=== PATIENT | female | born 1965 | race Caucasian/White ===

== ENCOUNTER 2016-04-22 07:11 | Outpatient (CLI) | payer BC | END 2016-04-22 07:12 | disposition home or self-care (01) | DX: D64.9 Anemia, unspecified (principal); R00.2 Palpitations; R74.8 Abnormal levels of other serum enzymes; E55.9 Vitamin D deficiency, unspecified ==

== ENCOUNTER 2017-12-10 07:52 | Outpatient (CLI) | payer BC ==
--- NOTE | 2017-12-11 12:25 | Mammography Report ---
Reason: SCREENING MAMMO Procedure Date: 12/10/2017 Accession Number: [id number] / [id number] Procedure: MARGARITA - Screening Mammo Dig Bilat CPT Code: FULL RESULT: EXAM: Screening Mammo Dig Bilat DATE: 12/10/2017 8:38 AM CLINICAL HISTORY: Routine screening TECHNIQUE: Bilateral CC and MLO views were obtained. COMPARISON: 11/23/2014, 11/24/2008, 05/11/2008 and 04/26/2008 FINDINGS: The breast tissue is heterogeneously dense. No significant interval change. No suspicious masses, clustered microcalcifications, or regions of architectural distortion are identified. IMPRESSION: Negative examination. RECOMMENDATION: Routine annual screening unless otherwise clinically indicated. BIRADS CATEGORY 1: Negative STANDARD QUALIFYING STATEMENTS: 1. This examination was reviewed with the aid of Computer-Aided Detection (CAD). 2. A negative or benign imaging report should not delay biopsy if clinically suspicious findings are present. Consider surgical consultation if warrented. More than 5% of cancers are not identified by imaging. 3. Dense breasts may obscure an underlying neoplasm.
== END 2017-12-10 07:53 | disposition home or self-care (01) ==
LOC: DI 07:52
PROVIDERS: ATTEND Nurse Practitioner Family
DX: Z12.31 Encounter for screening mammogram for malignant neoplasm of breast (principal)
CPT/HCPCS: 77067

== ENCOUNTER 2018-02-01 08:19 | Day surgery (SDC) | payer BC ==
[2018-02-01] MEDS ORDERED: LACTATED RINGERS 1,000 ML IV ONE ×2 (08:34→10:25)
[2018-02-01] MEDS ORDERED: MIDAZOLAM 2 MG/2 ML VIAL IVP ONE (09:44)
[2018-02-01] MEDS ORDERED: fentaNYL 250 MCG/5 ML VIAL IVP ONE (09:44)
[2018-02-01 10:52] VITALS: BP 101/65
== END 2018-02-01 08:20 | disposition home or self-care (01) ==
LOC: MERGE 08:19 → SDS 08:19 → EDSEX 08:19 → SDS 08:20
PROVIDERS: ATTEND Surgery
PROC: 0DJD8ZZ Inspection of Lower Intestinal Tract, Via Natural or Artificial Opening Endoscopic (ICD-10-PCS; principal; 2018-02-01 09:45)
DX: Z12.11 Encounter for screening for malignant neoplasm of colon (principal); Z80.0 Family history of malignant neoplasm of digestive organs; K64.8 Other hemorrhoids
CPT/HCPCS: 45378; J3010; J7120

== ENCOUNTER 2018-07-05 07:05 | Outpatient (CLI) | payer BC ==
[2018-07-05 10:45] LABS: BASOPHILS % (AUTO) 0.8 %; EOSINOPHILS # (AUTO) 0.1 10^3/uL (0.0-0.7); HGB - HEMOGLOBIN 13.6 g/dL (12.0-16.0); LYMPHOCYTES # (AUTO) 0.9 10^3/uL (1.5-3.5); LYMPHOCYTES % (AUTO) 22.8 %; MEAN CORPUSCULAR HEMOGLOBIN 31.4 pg (27.0-31.0); MEAN CORPUSCULAR HGB CONC 33.6 g/dL (32.0-36.0); MEAN CORPUSCULAR VOLUME 93.5 fL (81.0-99.0); MONOCYTES # (AUTO) 0.4 10^3/uL (0.0-1.0); MONOCYTES % (AUTO) 10.3 %; NEUTROPHILS # (AUTO) 2.6 10^3/uL (1.5-6.6); NEUTROPHILS % (AUTO) 64.1 %; PLT - PLATELET COUNT 246 10^3/uL (130-450); RED BLOOD COUNT 4.33 10^6/uL (4.20-5.40); RED CELL DISTRIBUTION WIDTH 13.6 % (12.0-15.0)
[2018-07-05 10:57] LABS: ALBUMIN 3.8 g/dL (3.2-5.5); ALBUMIN/GLOBULIN RATIO 1.5 (1.0-2.2); ALKALINE PHOSPHATASE 46 IU/L (42-121); ALT ALANINE AMINOTRANSFERASE 17 IU/L (10-60); AST ASPARTATE AMINOTRANSFERASE 19 IU/L (10-42); BILIRUBIN,TOTAL 0.5 mg/dL (0.2-1.0); BUN - BLOOD UREA NITROGEN 16 mg/dL (6-20); CALCIUM 8.8 mg/dL (8.5-10.3); CARBON DIOXIDE - CO2 29 mmol/L (21-32); CHLORIDE 98 mmol/L (101-111); CHOL/HDL RATIO 3.6 (<4.4); CHOLESTEROL 225 mg/dL; CREATININE 0.8 mg/dL (0.4-1.0); GFR - MDRD 76 (>89); GLUCOSE 84 mg/dL (70-100); HDL CHOLESTEROL 63 mg/dL; LDL CHOLESTEROL,CALCULATED 148 mg/dL; LDL/HDL RATIO 2.3 (<4.4); SODIUM 134 mmol/L (135-145); TOTAL PROTEIN 6.4 g/dL (6.7-8.2); VLDL CHOLESTEROL 14 mg/dL
== END 2018-07-05 07:06 | disposition home or self-care (01) ==
LOC: LAB.F 07:05
PROVIDERS: ATTEND Nurse Practitioner Family
DX: Z13.228 Encounter for screening for other metabolic disorders (principal); Z13.220 Encounter for screening for lipoid disorders; Z86.39 Personal history of other endocrine, nutritional and metabolic disease; D64.9 Anemia, unspecified
CPT/HCPCS: 36415; 80053; 80061; 83721; 84443; 85025

== ENCOUNTER 2018-08-20 06:51 | Outpatient (CLI) | payer BC ==
[2018-08-20] MEDS ORDERED: IOVERSOL 320 100 ML VIAL IVP ONE ×2 (07:31→07:39)
--- NOTE | 2018-08-20 13:38 | CT Report ---
Reason: CP, SYNCOPE Procedure Date: 08/20/2018 Accession Number: [id number] / [id number] Procedure: CT - ANGIO CHEST W/WO CPT Code: FULL RESULT: EXAM: CT ANGIOGRAM CHEST EXAM DATE: 08/20/2018 07:37 AM. CLINICAL HISTORY: Chest pain, SYNCOPE. COMPARISON: None. TECHNIQUE: Routine helical imaging was performed through the chest in the pulmonary arterial phase. IV Contrast: 80 mL of Optiray 320. Reconstructions: Coronal 3-D MIP reconstructions.Sagittal and coronal. In accordance with CT protocol optimization, one or more of the following dose reduction techniques were utilized for this exam: automated exposure control, adjustment of mA and/or KV based on patient size, or use of iterative reconstructive technique. FINDINGS: Pulmonary Arteries: Diagnostic quality: Adequate through the segmental arteries. No evidence for acute or chronic pulmonary emboli. RV/LV is within normal limits. There is no interventricular septal bowing. There is no reflux of contrast material in the IVC. Lungs/Pleura: Evaluation of lung parenchyma is limited by motion artifact and CT angiographic technique optimization. There is a small amount of bilateral dependent changes. There is no pulmonary consolidation, mass or suspicious pulmonary nodule detected. Pleural spaces are clear. Mediastinum: Right hilar lymph node measures up to 0.8 cm in short axis, not enlarged by size criteria. There is no mediastinal lymphadenopathy. There is no pericardial effusion. Thoracic Aorta: Unremarkable. Upper Abdomen: Unremarkable. Other: None. IMPRESSION: No pulmonary embolism is detected. RADIA
== END 2018-08-20 06:52 | disposition home or self-care (01) ==
LOC: DI 06:51
PROVIDERS: ATTEND Internal Medicine Cardiovascular Disease
DX: R07.9 Chest pain, unspecified (principal); R55 Syncope and collapse
CPT/HCPCS: 71275; Q9967

== ENCOUNTER 2018-09-02 07:32 | Outpatient (CLI) | payer BC ==
--- NOTE | 2018-09-02 10:20 | CARDIAC PROCEDURE NOTE ---
DATE OF SERVICE: 09/02/2018 Physician: Ashley Vinson MD, [facility] INDICATIONS: Chest pain and Syncope. CARDIAC RISK FACTORS: Strong family history of heart disease, elevated cholesterol. DESCRIPTION OF PROCEDURE: After signing informed consent, patient underwent a Akash-protocol treadmill stress test with Echo imaging at rest and at peak heart rate. Resting heart rate: 63. Peak heart rate: 160 (94% predicted maximum heart rate for age). Resting blood pressure: 110/76. Peak blood pressure: 170/75. The patient exercised for 7 minutes and 33 seconds on a Akash-protocol treadmill stress test. She achieved a peak heart rate of 160 (94% PMHR) and 9.5 METs. The patient had mild shortness of breath, no chest pain and described her perceived exertion at 14. The treadmill was stopped because of achieving target heart rate and overall fatigue. The patient had no lightheadedness during exercise, but in recovery, when going from supine to sitting, she did complain of lightheadedness (see below). RESTING EKG: Normal sinus rhythm, biphasic/flat T-wave in leads III and aVF. EKG AT PEAK: [address] depressions in leads III and aVF, unchanged T waves. EKG AT 4 minutes of recovery: New U-waves present, new scooping ST depressions of 0.5 mm in leads V4 through V6. SUMMARY: 1. Borderline abnormal resting electrocardiogram. 2. Good exercise tolerance. 3. ST segment changes occur after exercise, consider ischemia. 4. New U-waves developed after exercise (consider electrolyte or trace element abnormality). 5. The patient did have her typical lightheadedness symptom when going from supine (for the Echo exam) to sitting in recovery. At this point, her blood pressure had recovered from a peak of 170/75 at exercise to 101/65 at 3 minutes of recovery, in a sitting position. Before discharge, a standing blood pressure was performed, which was 100/59. The patient was told to hydrate herself more aggressively. 6. Echo images reported separately. cc: Andre Cuellar MD TD: 09/02/2018 10:05 [email or web address]
== END 2018-09-02 07:33 | disposition home or self-care (01) ==
LOC: DI 07:32
PROVIDERS: ATTEND Internal Medicine Cardiovascular Disease
DX: R07.9 Chest pain, unspecified (principal); R55 Syncope and collapse
CPT/HCPCS: 93016; 93017; 93018; 93350

== ENCOUNTER 2019-04-25 07:25 | Emergency (ER) | payer BC ==
[2019-04-25 07:46] VITALS: BP 111/81
--- NOTE | 2019-04-25 08:48 | ED Physician Documentation ---
PD HPI UPPER EXT INJURY - Stated complaint Stated Complaint: RT HAND PX - Chief complaint Chief Complaint: Ext Problem - History obtained from History obtained from: Patient - History of Present Illness Location: Right, Hand Type of injury: Other (unknown) Where injury occurred: Home Timing - onset: How many days ago (3) Timing - duration: Days (3) Timing - details: Gradual onset, Still present Improved by: Rest Worsened by: Moving, Palpating Associated symptoms: Swelling, Discolored. No: Weakness Contributing factors: No: Anticoagulated Similar symptoms before: Has not had sx before Recently seen: Not recently seen - Additonal information Additional information: Previously well 53-year-old female has developed some pain over the second metacarpal phalangeal joint of the right hand about 3 days ago. She is uncertain whether she injured this area but the pain is progressively gotten worse. Last night she iced it and took some Benadryl thinking may be the swelling would go down when she woke up this morning swelling and pain are worse. She is concerned about the possibility of infection or a bite and she does not recall a specific injury. Review of Systems Constitutional: denies: Fever, Chills, Myalgias Throat: denies: Sore throat Cardiac: denies: Chest pain / pressure Respiratory: denies: Dyspnea, Cough GI: denies: Vomiting PD PAST MEDICAL HISTORY - Past Medical History Past Medical History: Yes Cardiovascular: High cholesterol Respiratory: None Endocrine/Autoimmune: HyPERthyroidism GI: None : None HEENT: Chronic vision loss Psych: None Musculoskeletal: None Derm: None - Past Surgical History Past Surgical History: Yes HEENT: Myringotomy (tubes), Tonsil/Adenoidectomy - Present Medications Home Medications: Ambulatory Orders Medication Instructions Recorded Confirmed Cholecalciferol (Vitamin D3) 1,000 unit PO 02/01/18 [Vitamin D3] Cholecalciferol (Vitamin D3) 1,000 unit PO DAILY 02/01/18 02/01/18 [Vitamin D3] Glucosamine HCl 02/01/18 Glucosamine HCl 1,500 mg PO DAILY 02/01/18 02/01/18 [place]-3 Fatty Acids/Fish Oil 02/01/18 [[place]-3 Fish Oil 1,000 mg Sfgl] [place]-3/Dha/Epa/Fish Oil [Fish Oil 1 each PO DAILY 02/01/18 02/01/18 1,000 mg Softgel] Vit A/C/E/Zinc/Selenium/Copper 1 each PO 02/01/18 [Vision Formula Tablet] Vit A/Vit C/Vit E/Zinc/Copper 1 each PO DAILY 02/01/18 02/01/18 [Icaps Areds Softgel] Amox/Clav 875/125 [Augmentin] 1 each PO Q12H #14 tablet 04/25/19 - Allergies Allergies/Adverse Reactions: Allergies Allergy/AdvReac Type Severity Reaction Status Date / Time Tdap vaccine AdvReac Unknown Uncoded 04/25/19 07:47 - Social History Does the pt smoke?: No Smoking Status: Never smoker Does the pt drink ETOH?: No Does the pt have substance abuse?: No - Immunizations Immunizations: TDAP >10years/unknown PD ED PE NORMAL - Vitals Vital signs reviewed: Yes (normal ) - General General: No acute distress, Well developed/nourished - HEENT HEENT: Atraumatic, PERRL, EOMI - Respiratory Respiratory: No respiratory distress - Derm Derm: Normal color, Warm and dry, No rash - Extremities Extremities: Other (There is swelling erythema and tenderness over the right 3rd MCP. She is able to flex and extend with pain and there is no lymphangitic streaking or significant hand swelling. 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 Correlate with inflammatory arthritis.), EMP read indepedently, See rad report PD MEDICAL DECISION MAKING - ED course Complexity details: reviewed results, re-evaluated patient, considered differential, d/w patient ED course: 53-year-old female with swelling and tenderness over the right Third MCP does not have a specific history of trauma and there is concern for the possibility of infection which is progressed over 3 days. The infectious load does not appear excessive in any way. X-ray correlates with inflammatory arthritis a ssociated with a cyst to the distal third metacarpal head. Departure - Departure Disposition: 01 Home, Self Care Clinical Impression: Cellulitis Qualifiers: Site of cellulitis: extremity Site of cellulitis of extremity: finger Laterality: right Qualified Code(s): L03.011 - Cellulitis of right finger Condition: Stable Instructions: ED Infec Skin Cellulitis Follow-Up: Ginny Wise ARNP [Primary Care Provider] - Prescriptions: Amox/Clav 875/125 [Augmentin] 1 each PO Q12H #14 tablet
--- NOTE | 2019-04-25 09:17 | XRAY Report ---
Reason: swelling pain over 3rd mcp Procedure Date: 04/25/2019 Accession Number: [id number] / [id number] Procedure: XR - Hand 3 View RT CPT Code: Final Report FULL RESULT: EXAM: RIGHT HAND RADIOGRAPHY EXAM DATE: 04/25/2019 09:02 AM. CLINICAL HISTORY: Swelling pain over 3rd mcp. Limited range of motion all fingers due to pain beginning 04/23/2019. COMPARISON: None. TECHNIQUE: 3 views. FINDINGS: Bones: Cyst or erosion 2.7 mm radial aspect third metacarpal head. Joints: Normal. No subluxations. Soft Tissues: Normal. No soft tissue swelling. IMPRESSION: Cyst or erosion 2.7 mm radial aspect third metacarpal head. Correlate with inflammatory arthritis. RADIA
== END 2019-04-25 10:29 | disposition home or self-care (01) ==
LOC: ED 07:25
DX: L03.011 Cellulitis of right finger (principal); M13.841 Other specified arthritis, right hand; M85.441 Solitary bone cyst, right hand
CPT/HCPCS: 99283; 99284

== ENCOUNTER 2020-09-07 10:05 | Outpatient (CLI) | payer BC ==
--- NOTE | 2020-09-07 10:33 | XRAY Report ---
PROCEDURE: Shoulder 3 View BILAT INDICATIONS: BILAT SHOULDER PAIN M25.511 M25.512 TECHNIQUE: 6 views of the shoulder were acquired. COMPARISON: None. FINDINGS: Bones: No fractures or dislocations. No suspicious bony lesions. Mild right worse than left acromi oclavicular joint osteoarthritic changes are seen. Visualized ribs appear intact. Soft tissues: No suspicious soft tissue calcifications. 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 No fracture or dislocation. Reviewed by: Mason Trevizo MD on 09/07/2020 10:31 AM PDT Approved by: Mason Trevizo MD on 09/07/2020 10:31 AM PDT Station ID: [id number]
== END 2020-09-07 10:06 | disposition home or self-care (01) ==
LOC: DI.S 10:05
PROVIDERS: ATTEND Registered Nurse
DX: M25.511 Pain in right shoulder (principal); M25.512 Pain in left shoulder; M19.012 Primary osteoarthritis, left shoulder; M19.011 Primary osteoarthritis, right shoulder

== ENCOUNTER 2021-05-10 08:00 | Outpatient (CLI) | payer BC ==
[2021-05-10 15:24] LABS: BILIRUBIN,URINE NEGATIVE (NEGATIVE); GLUCOSE, URINE (UA) NEGATIVE (NEGATIVE); KETONES,URINE (UA) NEGATIVE (NEGATIVE); LEUKOCYTE ESTERASE, URINE NEGATIVE (NEGATIVE); NITRITE,URINE NEGATIVE (NEGATIVE); OCCULT BLOOD,URINE NEGATIVE (NEGATIVE); PH,URINE 6.5 PH (5.0-7.5); PROTEIN,URINE NEGATIVE (NEGATIVE); UROBILINOGEN,URINE 0.2 (NORMAL) E.U./dL (NORMAL)
[2021-05-10 15:31] LABS: CLARITY,URINE CLEAR (CLEAR)
[2021-05-10 15:44] LABS: BACTERIA,URINE None Seen /HPF (None Seen); RBC,URINE None Seen /HPF (0-5); SQUAMOUS EPITHELIAL CELL,UR MANY Squamous (<= Few); WBC,URINE 0-3 /HPF (0-5)
== END 2021-05-10 08:01 | disposition home or self-care (01) ==
LOC: LAB.S 08:00
PROVIDERS: ATTEND Emergency Medicine
DX: R30.0 Dysuria (principal)
CPT/HCPCS: 81001; 87086

== ENCOUNTER 2021-12-14 18:30 | Emergency (ER) | payer BC ==
[2021-12-14 19:33] LABS: BASOPHILS % (AUTO) 0.3 %; EOSINOPHILS % (AUTO) 0.1 %; HCT - HEMATOCRIT 40.7 % (37.0-47.0); HGB - HEMOGLOBIN 14.2 g/dL (12.0-16.0); LYMPHOCYTES % (AUTO) 2.5 %; MEAN CORPUSCULAR HGB CONC 34.9 g/dL (32.0-36.0); MEAN CORPUSCULAR VOLUME 91.7 fL (81.0-99.0); MEAN PLATELET VOLUME 10.5 fL (7.9-10.8); MONOCYTES % (AUTO) 8.3 %; NEUTROPHILS % (AUTO) 88.4 %; PLT - PLATELET COUNT 206 10^3/uL (130-450); RED BLOOD COUNT 4.44 10^6/uL (4.20-5.40); RED CELL DISTRIBUTION WIDTH 13.2 % (12.0-15.0); WHITE BLOOD COUNT 20.3 x10^3/uL (4.8-10.8)
[2021-12-14 19:36] LABS: ABNORMAL LYMPHS % (MANUAL) 0 %
[2021-12-14 19:46] LABS: ALBUMIN 4.3 g/dL (3.2-5.5); ALBUMIN/GLOBULIN RATIO 1.7 (1.0-2.2); CALCIUM 9.2 mg/dL (8.5-10.3); CREATININE 0.8 mg/dL (0.4-1.0); POTASSIUM 3.2 mmol/L (3.5-5.0); TOTAL PROTEIN 6.9 g/dL (6.7-8.2)
[2021-12-14 19:51] LABS: BILIRUBIN,URINE NEGATIVE (NEGATIVE); GLUCOSE, URINE (UA) NEGATIVE (NEGATIVE); KETONES,URINE (UA) 15 mg/dL (NEGATIVE); LEUKOCYTE ESTERASE, URINE NEGATIVE (NEGATIVE); NITRITE,URINE NEGATIVE (NEGATIVE); OCCULT BLOOD,URINE NEGATIVE (NEGATIVE); PROTEIN,URINE NEGATIVE (NEGATIVE); UROBILINOGEN,URINE 0.2 (NORMAL) E.U./dL (NORMAL)
[2021-12-14 19:58] LABS: BAND NEUTROPHILS % (MANUAL) 10 %; DIFFERENTIAL COMMENT MANUAL DIFFERENTIAL; LYMPHOCYTES # (MANUAL) 1.4 10^3/uL (1.5-3.5); LYMPHOCYTES % (MANUAL) 2 %; NEUTROPHILS # (MANUAL) 17.9 10^3/uL (1.5-6.6); PLATELET ESTIMATE, MANUAL NORMAL (130-450,000) (NORMAL); PLATELET MORPHOLOGY NORMAL APPEARANCE (NORMAL); RBC MORPHOLOGY (MULTIPLE) NORMAL APPEARANCE (NORMAL); REACTIVE LYMPHS % (MANUAL) 5 %
--- NOTE | 2021-12-14 20:15 | ED Physician Documentation ---
History of Present Illness - Stated complaint Stated Complaint: FEVER,LOWER BACK PX - Chief complaint Chief Complaint: Trauma Ch/Bk - History obtained from History obtained from: Patient - History of Present Illness Timing: Today Pain level max: 5 Pain level now: 5 - Additonal information Additional information: Patient is a 55-year-old female who presents to the emergency department complaining of back pain, chills, body aches today. Has had mild nausea but no vomiting. No urinary symptoms. No rhinorrhea or congestion. No cough. Review of Systems Ten Systems: 10 systems reviewed and negative Constitutional: reports: Fever, Chills Respiratory: denies: Cough GI: denies: Nausea, Vomiting, Diarrhea Skin: denies: Rash Musculoskeletal: denies: Neck pain, Back pain Neurologic: denies: Headache PD PAST MEDICAL HISTORY - Past Medical History Past Medical History: Yes Cardiovascular: High cholesterol Respiratory: None Endocrine/Autoimmune: HyPERthyroidism GI: None : None HEENT: Chronic vision loss Psych: None Musculoskeletal: None Derm: None - Past Surgical History Past Surgical History: Yes HEENT: Myringotomy (tubes), Tonsil/Adenoidectomy - Present Medications Home Medications: Ambulatory Orders Medication Instructions Recorded Confirmed Cholecalciferol (Vitamin D3) 1,000 unit PO 02/01/18 [Vitamin D3] Cholecalciferol (Vitamin D3) 1,000 unit PO DAILY 02/01/18 02/01/18 [Vitamin D3] [place]-3 Fatty Acids/Fish Oil 02/01/18 [[place]-3 Fish Oil 1,000 mg Sfgl] [place]-3/Dha/Epa/Fish Oil [Fish Oil 1 each PO DAILY 02/01/18 02/01/18 1,000 mg Softgel] Vit A/C/E/Zinc/Selenium/Copper 1 each PO 02/01/18 [Vision Formula Tablet] Vit A/Vit C/Vit E/Zinc/Copper 1 each PO DAILY 02/01/18 02/01/18 [Icaps Areds Softgel] glucosamine HCL [Glucosamine HCl] 02/01/18 glucosamine HCL [Glucosamine HCl] 1,500 mg PO DAILY 02/01/18 02/01/18 Amox/Clav 875/125 [Augmentin] 1 each PO Q12H #14 tablet 04/25/19 - Allergies Allergies/Adverse Reactions: Allergies Allergy/AdvReac Type Severity Reaction Status Date / Time Tdap vaccine AdvReac Unknown Uncoded 12/14/21 18:53 - Social History Does the pt smoke?: No Smoking Status: Never smoker Does the pt drink ETOH?: No Does the pt have substance abuse?: No - Immunizations Immunizations: TDAP >10years/unknown PD ED PE NORMAL - Vitals Vital signs reviewed: Yes - General General: Alert and oriented X 3, No acute distress, Well developed/nourished - HEENT HEENT: PERRL, Moist mucous membranes - Neck Neck: Supple, no meningeal sign - Cardiac Cardiac: RRR - Respiratory Respiratory: No respiratory distress, Clear bilaterally - Abdomen Abdomen: Soft, Non distended, Other (Tender to palpation left upper quadrant. No peritoneal signs.) - Back Back: No spinal TTP, Other (Left CVA tenderness) - Derm Derm: Warm and dry - Extremities Extremities: No edema - Neuro Neuro: Alert and oriented X 3 - Psych Psych: Normal mood, Normal affect Results - Vitals Vitals: Vital Signs - 24 hr 12/14/21 12/14/21 12/14/21 18:41 19:39 20:49 Temperature 38.3 C H Heart Rate 95 76 71 Respiratory 18 16 18 Rate Blood Pressure 125/64 106/59 L 108/78 O2 Saturation 97 99 97 Oxygen O2 Source Room air - Labs Labs: Laboratory Tests 12/14/21 12/14/21 12/14/21 19:27 19:27 19:43 WBC 20.3 H RBC 4.44 Hgb 14.2 Hct 40.7 MCV 91.7 MCH 32.0 H MCHC 34.9 RDW 13.2 Plt Count 206 MPV 10.5 Neut # (Auto) Not Reportable Lymph # (Auto) Not Reportable [place] # (Auto) Not Reportable Eos # (Auto) Not Reportable Baso # (Auto) Not Reportable Absolute Nucleated RBC Not Reportable Total Counted 100 Band Neuts % (Manual) 10 Reactive Lymphs % (Man) 5 Abnorm Lymph % (Manual) 0 Nucleated RBC % Not Reportable Neutrophils # (Manual) 17.9 H Lymphocytes # (Manual) 1.4 L Monocytes # (Manual) 1.0 Eosinophils # (Manual) 0.0 Basophils # (Manual) 0.0 Differential Comment MANUAL DIFFERENTIAL Platelet Estimate NORMAL (130-450,000) Platelet Morphology NORMAL APPEARANCE RBC Morph Micro Appear NORMAL APPEARANCE Sodium 134 L Potassium 3.2 L Chloride 100 L Carbon Dioxide 24 Anion Gap 10.0 BUN 19 Creatinine 0.8 Estimated GFR (MDRD) 75 L Glucose 110 H Calcium 9.2 Total Bilirubin 1.0 AST 21 ALT 17 Alkaline Phosphatase 65 Total Protein 6.9 Albumin 4.3 Globulin 2.6 Albumin/Globulin Ratio 1.7 Lipase 29 Urine Color YELLOW Urine Clarity CLEAR Urine pH 6.0 Ur Specific [place] 1.010 Urine Protein NEGATIVE Urine Glucose (UA) NEGATIVE Urine Ketones 15 H Urine Occult Blood NEGATIVE Urine Nitrite NEGATIVE Urine Bilirubin NEGATIVE Urine Urobilinogen 0.2 (NORMAL) Ur Leukocyte Esterase NEGATIVE Ur Microscopic Review NOT INDICATED Urine Culture Comments NOT INDICATED Nasal Adenovirus (PCR) Nasal B. parapertussis DNA (PCR) Nasal Coronavir 229E PCR Nasal Coronavir HKU1 PCR Nasal Coronavir NL63 PCR Nasal Coronavir OC43 PCR Nasal Enterovir/Rhinovir PCR Nasal Influenza B PCR Nasal Influenza A PCR Nasal Parainfluen 1 PCR Nasal Parainfluen 2 PCR Nasal Parainfluen 3 PCR Nasal Parainfluen 4 PCR Nasal RSV (PCR) Nasal B.pertussis DNA PCR Nasal C.pneumoniae (PCR) [place] Human Metapneumo PCR Nasal M.pneumoniae (PCR) Nasal SARS-CoV-2 (PCR) 12/14/21 19:43 WBC RBC Hgb Hct MCV MCH MCHC RDW Plt Count MPV Neut # (Auto) Lymph # (Auto) [place] # (Auto) Eos # (Auto) Baso # (Auto) Absolute Nucleated RBC Total Counted Band Neuts % (Manual) Reactive Lymphs % (Man) Abnorm Lymph % (Manual) Nucleated RBC % Neutrophils # (Manual) Lymphocytes # (Manual) Monocytes # (Manual) Eosinophils # (Manual) Basophils # (Manual) Differential Comment Platelet Estimate Platelet Morphology RBC Morph Micro Appear Sodium Potassium Chloride Carbon Dioxide Anion Gap BUN Creatinine Estimated GFR (MDRD) Glucose Calcium Total Bilirubin AST ALT Alkaline Phosphatase Total Protein Albumin Globulin Albumin/Globulin Ratio Lipase Urine Color Urine Clarity Urine pH Ur Specific [place] Urine Protein Urine Glucose (UA) Urine Ketones Urine Occult Blood Urine Nitrite Urine Bilirubin Urine Urobilinogen Ur Leukocyte Esterase Ur Microscopic Review Urine Culture Comments Nasal Adenovirus (PCR) NOT DETECTED Nasal B. parapertussis DNA (PCR) NOT DETECTED Nasal Coronavir 229E PCR NOT DETECTED Nasal Coronavir HKU1 PCR NOT DETECTED Nasal Coronavir NL63 PCR NOT DETECTED Nasal Coronavir OC43 PCR NOT DETECTED Nasal Enterovir/Rhinovir PCR NOT DETECTED Nasal Influenza B PCR NOT DETECTED Nasal Influenza A PCR NOT DETECTED Nasal Parainfluen 1 PCR NOT DETECTED Nasal Parainfluen 2 PCR NOT DETECTED Nasal Parainfluen 3 PCR NOT DETECTED Nasal Parainfluen 4 PCR NOT DETECTED Nasal RSV (PCR) NOT DETECTED Nasal B.pertussis DNA PCR NOT DETECTED Nasal C.pneumoniae (PCR) NOT DETECTED [place] Human Metapneumo PCR NOT DETECTED Nasal M.pneumoniae (PCR) NOT DETECTED Nasal SARS-CoV-2 (PCR) NOT DETECTED - Rads (name of study) CT abd/pelvis Radiology: Other PD MEDICAL DECISION MAKING - ED course Complexity details: reviewed results, re-evaluated patient, considered differential, d/w patient, d/w family ED course: 55-year-old female presents to the emergency department with left upper quadrant/left flank pain and fever. Symptoms are consistent with pyelonephritis, but her urinalysis is negative. CT abdomen and pelvis is ordered. Patient will be signed out to Dr. Tim awaiting abdomen pelvis CT. Does have significant leukocytosis. Patient is otherwise well-appearing, nontoxic. Disposition will depend on results of the CT scan. Please see his note for further care. Departure - Departure Clinical Impression: Fever Qualifiers: Fever type: unspecified Qualified Code(s): R50.9 - Fever, unspecified Leukocytosis Qualifiers: Leukocytosis type: unspecified Qualified Code(s): D72.829 - Elevated white blood cell count, unspecified Condition: Stable
[2021-12-14 20:21] LABS: CLARITY,URINE CLEAR (CLEAR)
[2021-12-14] MEDS ORDERED: SODIUM CHLORIDE 0.9% 1,000 ML IV STA (20:39)
[2021-12-14 20:46] LABS: B. PARAPERTUSSIS- RESP PCR PAN NOT DETECTED; B. PERTUSSIS- RESP PCR PANEL NOT DETECTED; C. PNEUMONIAE- RESP PCR PANEL NOT DETECTED; CORONAVIRUS 229E-RESP PCR NOT DETECTED; CORONAVIRUS HKU1-RESP PCR NOT DETECTED; CORONAVIRUS NL63-RESP PCR NOT DETECTED; CORONAVIRUS OC43-RESP PCR NOT DETECTED; HUMAN METAPNEUMOVIRUS NOT DETECTED; INFLUENZA A- RESP PCR PANEL NOT DETECTED; INFLUENZA B - RESP PCR PANEL NOT DETECTED; M. PNEUMONIAE- RESP PCR PANEL NOT DETECTED; PARAINFLUENZA VIRUS 1 NOT DETECTED; PARAINFLUENZA VIRUS 2 NOT DETECTED; PARAINFLUENZA VIRUS 3 NOT DETECTED; PARAINFLUENZA VIRUS 4 NOT DETECTED; RHINOVIRUS/ENTEROVIRUS NOT DETECTED; RSV- RESP PCR PANEL NOT DETECTED; SARS-CoV-2 -RESP PCR PANEL NOT DETECTED
[2021-12-14] MEDS ORDERED: iohexoL-300 100 ML VIAL ONE (21:56)
[2021-12-14] MEDS ORDERED: iohexoL-300 100 ML VIAL IVP ONE (22:33)
--- NOTE | 2021-12-14 23:05 | CT Report ---
PROCEDURE: ABDOMEN/PELVIS W INDICATIONS: fever, L flank pain CONTRAST: 100 ML OMNI 300 TECHNIQUE: After the administration of nonionic contrast, 5 mm thick sections acquired from the diaphragms to th e symphysis. 5 mm thick coronal and sagittal reformats were acquired. For radiation dose reduction, the following was used: automated exposure control, adjustment of mA and/or kV according to patient size. COMPARISON: None. FINDINGS: Image quality: Excellent. ABDOMEN: Lung bases: Lung bases are clear. Heart size is normal. Solid organs: Liver and spleen are normal in size and enhancement. Gallbladder appears normal Bili libretad system is non dilated. Pancreas enhances normally. No adrenal nodules. Kidneys demonstrate nor mal size and enhancement, without hydronephrosis. Peritoneum and bowel: Bowel loops demonstrate normal wall thickness and caliber. No free fluid or a ir. Note is made of what appears to be mild to dominant O moderate colonic obstipation. Nodes and vessels: No retroperitoneal or mesenteric adenopathy by size criteria. Aorta and inferior vena cava are normal in size. Miscellaneous: No ventral hernias. PELVIS: Genitourinary: Bladder wall thickness is normal. Miscellaneous: No inguinal hernias or adenopathy. Bones: No suspicious bony lesions. No vertebral body compression fractures. IMPRESSION: No evidence of urinary tract stone or inflammation. Mild to moderate colonic obstipation , but a definite source of asymmetric left-sided flank pain is not found. Reviewed by: James Guerrero MD on 12/14/2021 11:04 PM PDT Approved by: James Guerrero MD on 12/14/2021 11:04 PM PDT Station ID: [id number]
[2021-12-14] MEDS ORDERED: KETOROLAC 30 MG/ML VIAL IVP STA (23:58)
[2021-12-15] MEDS ORDERED: AMOX/CLAV 875 MG/125 MG TABLET PO STA
[2021-12-15] MEDS ORDERED: HYDROcod/ACET 5/325 Prepack 4 PO STA
[2021-12-15] MEDS ORDERED: POTASSIUM CHLORIDE 20 MEQ TABLET PO STA (00:01)
[2021-12-15 00:16] VITALS: BP 98/57
--- NOTE | 2021-12-15 00:27 | ED Physician Documentation ---
ED Addendum - Addendum Addendum: 12/15/21 00:27 I am prescribing a short course of short-acting opioid pain medication for this patient. 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 I have discussed that the opioids are for short term therapy only, and will not be refilled from the ED 12/15/21 08:46 Received sign out from Dr. Mace at end of his shift. Please see Dr. Mace's note for detailed H+P. She was pending CT A/P results at change of shift. CT A/P is only remarkable for "mild to moderate colonic obstipation" (per radiology reading). There is no apparent source of patient's fever but given her significant leukocytosis and c/o left flank pain along with left CVA tenderness on exam, will cover for possible early pyelonephritis (given augmentin with rx for same). She is given toradol IV for pain, declines stronger (narcotic) medication at this time, but accepts take-home vicodin to be used if the toradol is ineffective. Given 20meq PO KCL for incidental note of hypokalemia. Results d/w patient, return precautions discussed
== END 2021-12-15 00:23 | disposition home or self-care (01) ==
LOC: ED 18:30
DX: R50.9 Fever, unspecified (principal); D72.829 Elevated white blood cell count, unspecified; Z20.822 Contact with and (suspected) exposure to COVID-19
CPT/HCPCS: 36415; 74177; 80053; 81003; 83690; 85025; 87633; 96372; 99284; A9270; Q9967; 81001; 87086

== ENCOUNTER 2022-01-29 07:03 | Outpatient (CLI) | payer BC ==
[2022-01-29 15:10] LABS: EOSINOPHILS # (AUTO) 0.1 10^3/uL (0.0-0.7); EOSINOPHILS % (AUTO) 2.3 %; HCT - HEMATOCRIT 45.6 % (37.0-47.0); HGB - HEMOGLOBIN 14.9 g/dL (12.0-16.0); LYMPHOCYTES # (AUTO) 1.2 10^3/uL (1.5-3.5); LYMPHOCYTES % (AUTO) 31.8 %; MEAN CORPUSCULAR HEMOGLOBIN 31.2 pg (27.0-31.0); MEAN CORPUSCULAR HGB CONC 32.7 g/dL (32.0-36.0); MEAN CORPUSCULAR VOLUME 95.6 fL (81.0-99.0); MEAN PLATELET VOLUME 11.6 fL (7.9-10.8); MONOCYTES # (AUTO) 0.5 10^3/uL (0.0-1.0); MONOCYTES % (AUTO) 11.5 %; NEUTROPHILS # (AUTO) 2.1 10^3/uL (1.5-6.6); NEUTROPHILS % (AUTO) 53.1 %; PLT - PLATELET COUNT 244 10^3/uL (130-450); RED BLOOD COUNT 4.77 10^6/uL (4.20-5.40); RED CELL DISTRIBUTION WIDTH 13.3 % (12.0-15.0); WHITE BLOOD COUNT 3.9 x10^3/uL (4.8-10.8)
[2022-01-29 15:31] LABS: ALBUMIN 4.5 g/dL (3.2-5.5); ALBUMIN/GLOBULIN RATIO 1.7 (1.0-2.2); ALKALINE PHOSPHATASE 61 IU/L (42-121); ALT ALANINE AMINOTRANSFERASE 20 IU/L (10-60); AST ASPARTATE AMINOTRANSFERASE 23 IU/L (10-42); BILIRUBIN,TOTAL 0.8 mg/dL (0.2-1.0); BUN - BLOOD UREA NITROGEN 17 mg/dL (6-20); CALCIUM 9.7 mg/dL (8.5-10.3); CARBON DIOXIDE - CO2 32 mmol/L (21-32); CHLORIDE 98 mmol/L (101-111); CHOL/HDL RATIO 3.5 (<4.4); CHOLESTEROL 283 mg/dL; CREATININE 0.8 mg/dL (0.4-1.0); GFR - MDRD 75 (>89); GLUCOSE 89 mg/dL (70-100); HDL CHOLESTEROL 80 mg/dL; LDL CHOLESTEROL,CALCULATED 189 mg/dL; LDL/HDL RATIO 2.4 (<4.4); POTASSIUM 3.8 mmol/L (3.5-5.0); SODIUM 139 mmol/L (135-145); TOTAL PROTEIN 7.2 g/dL (6.7-8.2); TRIGLYCERIDES 68 mg/dL; VLDL CHOLESTEROL 14 mg/dL
[2022-01-29 15:40] LABS: THYROID STIMULATING HORMONE 8.39 uIU/mL (0.34-5.60)
[2022-01-29 17:30] LABS: FREE T4 (FREE THYROXINE) 0.66 ng/dL (0.58-1.64)
== END 2022-01-29 07:04 | disposition home or self-care (01) ==
LOC: LAB.S 07:03
PROVIDERS: ATTEND Nurse Practitioner
DX: N12 Tubulo-interstitial nephritis, not specified as acute or chronic (principal); E87.6 Hypokalemia; E78.5 Hyperlipidemia, unspecified; R00.2 Palpitations; D64.9 Anemia, unspecified
CPT/HCPCS: 36415; 80053; 80061; 83721; 84439; 84443; 85025

== ENCOUNTER 2022-06-03 07:00 | Outpatient (CLI) | payer BC | END 2022-06-03 23:59 | disposition home or self-care (01) | LOC: LAB.S 07:00 | PROVIDERS: ATTEND Physician Assistant | DX: M54.50 Low back pain, unspecified (principal) | CPT/HCPCS: 87086 ==